=== PATIENT | female | born 1945 | race Caucasian/White ===

== ENCOUNTER → 2017-12-28 | Outpatient (CLI) | payer MEDICARE ==
[2017-12-28 13:03] LABS: Appearance,Urine Clear (Clear); Bilirubin,Urine Negative (Negative); Blood,Urine Negative (Negative); Color,Urine Light Yellow; Glucose,Urine (UA) Negative (Negative); Ketones,Urine Negative (Negative); Leukocyte Esterase,Urine Negative (Negative); Nitrite,Urine Negative (Negative); PH, Urine 7.5 (5.0-8.0); Protein,Urine Negative (Negative); Specific Gravity,Urine 1.008 (1.001-1.035); Urobilinogen,Urine <2.0 mg/dL (<2.0)
[2017-12-28 13:10] LABS: HCT 45.8 % (34.0-46.0); HGB 14.8 gm/dL (11.4-16.0); MCH 28.5 pg (25.0-35.0); MCHC 32.3 g/dL (31.0-37.0); MCV 88.1 fL (80.0-100.0); Mean Platelet Volume 8.1; Platelet Count 228 k/uL (150-450); RBC 5.21 m/uL (3.80-5.40); RDW 13.4 % (11.5-15.5); WBC 7.3 k/uL (3.8-10.6)
[2017-12-28 13:18] LABS: Partial Thromboplastin Time 22.2 sec (22.0-30.0); Prothrombin Time 10.1 sec (9.0-12.0)
[2017-12-28 13:37] LABS: ALT 26 U/L (9-52); AST 28 U/L (14-36); Albumin 4.1 g/dL (3.5-5.0); Alkaline Phosphatase 76 U/L (38-126); Anion Gap 9 mmol/L; Blood Urea Nitrogen 18 mg/dL (7-17); Calcium 10.1 mg/dL (8.4-10.2); Carbon Dioxide 30 mmol/L (22-30); Chloride 102 mmol/L (98-107); Glucose 95 mg/dL (74-99); Potassium 4.3 mmol/L (3.5-5.1); Sodium 141 mmol/L (137-145); Total Bilirubin 0.5 mg/dL (0.2-1.3); Total Protein 7.1 g/dL (6.3-8.2)
== END ==
LOC: LABPAT 11:40
PROVIDERS: ATTEND Orthopaedic Surgery Sports Medicine
DX: Z01.812 Encounter for preprocedural laboratory examination (principal); Z51.81 Encounter for therapeutic drug level monitoring; Z79.01 Long term (current) use of anticoagulants
CPT/HCPCS: 36415; 80053; 81003; 85027; 85610; 85730; 87070

== ENCOUNTER 2018-01-03 09:56 | Inpatient (IN) | payer MEDICARE ==
[2017-12-26 12:51] VITALS: BMI 39.4
[~2018-01-03 09:56] MED LIST: ACETAMINOPHEN TAB 500 MG TAB PO ONE; MELOXICAM 7.5 MG TAB PO ONE; ONDANSETRON 4 MG/2 ML VIAL IVP ONE; ROPIVACAINE 246.25 MG, EPINEPHrine 0.5 MG, KETOROLAC 30 MG, cloNIDine HCL/PF 80 MCG, WA... MISCELLANE ONE; TRANEXAMIC ACID 1,000 MG in SODIUM CHLORIDE 0.9% 50 ML IVPB ONE; ceFAZolin IN SWFI 2 GM/20 ML SYRINGE IVP ONE
[2018-01-03] MEDS ORDERED: LIDOCAINE 1% 20 ML VIAL (10MG/ML) FOR IV START INTRADERMA ONE (11:00)
[2018-01-03] MEDS ORDERED: LACTATED RINGERS 1,000 ML IV ONE ×2 (11:05→13:37)
[2018-01-03] MEDS ORDERED: NALOXONE 0.4 MG/ML 1 ML VIAL IV PRN ×2 (11:59→15:04)
[2018-01-03] MEDS ORDERED: TEMAZEPAM 15 MG CAP PO PRN (11:59)
[2018-01-03] MEDS ORDERED: traMADol 50 MG TAB PO PRN (11:59)
[2018-01-03] MEDS ORDERED: HYDROcodone/APAP 5-325MG 1 EACH TAB PO PRN ×2 (11:59)
[2018-01-03] MEDS ORDERED: HYDROcodone/APAP 10-325MG 1 EACH TAB PO PRN (11:59)
[2018-01-03] MEDS ORDERED: NA PHOS,M-B/NA PHOS,DI-BA 133 ML ENEMA RECTAL PRN (11:59)
[2018-01-03] MEDS ORDERED: HYDROcodone/APAP 7.5-325MG 1 EACH TAB PO PRN (11:59)
[2018-01-03] MEDS ORDERED: BISACODYL 10 MG SUPP RECTAL PRN (11:59)
[2018-01-03] MEDS ORDERED: MAGNESIUM HYDROXIDE 2,400 MG/10 ML CUP PO PRN (11:59)
[2018-01-03] MEDS ORDERED: DIAZEPAM 5 MG TAB PO PRN (11:59)
[2018-01-03] MEDS ORDERED: hydrOXYzine PAMOATE 25 MG CAP PO PRN (11:59)
[2018-01-03] MEDS ORDERED: HYDROmorphone 1 MG/ML 1 ML SYRINGE IVP PRN ×3 (11:59)
[2018-01-03] MEDS ORDERED: MIDAZOLAM 2 MG/2 ML VIAL ONE (12:19)
[2018-01-03] MEDS ORDERED: SODIUM CHLORIDE 0.9% 100 ML BAG ONE (12:19)
[2018-01-03] MEDS ORDERED: TRANEXAMIC ACID 1,000 MG/10 ML VIAL ONE (12:19)
[2018-01-03] MEDS ORDERED: MORPHINE SULFATE (PF) 0.3 MG/0.3 ML SYR ONE (12:19)
[2018-01-03] MEDS ORDERED: ePHEDrine SULFATE/0.9% NACL/PF 50 MG/5 ML SYRINGE IV ONE (12:19)
[2018-01-03] MEDS ORDERED: PROPOFOL 10 MG/ML 20 ML VIAL IV ONE (12:19)
[2018-01-03] MEDS ORDERED: fentaNYL (PF) 50 MCG/ML 2 ML AMP ONE (12:19)
[2018-01-03] MEDS ORDERED: CLINDAMYCIN 1,800 MG in SODIUM CHLORIDE 0.9% IRRIGATIO 3,000 ML IRRIGATION ONE (12:57)
--- NOTE | 2018-01-03 14:49 | XR ---
EXAMINATION TYPE: XR knee limited RT DATE OF EXAM: 01/03/2018 COMPARISON: None HISTORY: Postop knee TECHNIQUE: 2 view right knee FINDINGS: Femoral and tibial components of in place. No acute fractures are evident. Postsurgical addy nges are present. IMPRESSION: 1. No acute fracture post knee replacement.
[2018-01-03] MEDS ORDERED: MORPHINE SULFATE 4 MG/ML SYRINGE IVP PRN (15:04)
[2018-01-03] MEDS ORDERED: METOCLOPRAMIDE 5 MG/ML 2 ML VIAL IVP PRN (15:04)
[2018-01-03] MEDS ORDERED: diphenhydrAMINE 50 MG/ML 1 ML VIAL IVP PRN (15:04)
[2018-01-03] MEDS ORDERED: PROMETHAZINE INJ 6.25 MG in SODIUM CHLORIDE 0.9% 50 ML IVPB PRN (15:04)
--- NOTE | 2018-01-03 15:07 | OP ---
OPERATIVE REPORT DATE OF PROCEDURE: 01/03/2018 SURGEON: Woody Jasmine MD SPECIAL EDUCATION PARAEDUCATOR: ELIZABETH Coburn. PREOPERATIVE DIAGNOSIS: Right knee osteoarthrosis. POSTOPERATIVE DIAGNOSIS: Right knee osteoarthrosis. OPERATION: Right total knee arthroplasty. ANESTHESIA: Spinal with sedation. ESTIMATED BLOOD LOSS: 100 mL. TOURNIQUET TIME: 49 minutes at 250 mmHg. COMPLICATIONS: None apparent. DRAINS: None. DISPOSITION: Postanesthesia care unit. INDICATIONS: Camelia is a very pleasant 72-year-old female with longstanding history of right knee pain. History and physical examination are consistent with advanced right knee osteoarthrosis. She has been through significant nonoperative management up to this point. Further treatment options were discussed and she decided to go forward with a right total knee arthroplasty. The risks of the procedure were discussed with her in detail. These risks include, but are not limited to risk of infection, nerve damage, bleeding, pain and risk of deep vein thrombosis which could lead to fatal pulmonary embolism. There is also risk of loosening of the implant which could require revision operation. The patient understands these risks. All of her questions were answered to her satisfaction. Appropriate informed consent was obtained. DESCRIPTION OF THE PROCEDURE: Patient identified in preoperative holding area. Surgical site was marked by both the patient and myself. She was given 2 g of Ancef IV for prophylactic purposes. She was then transferred to the operative suite. She was placed supine on the operative table. Spinal anesthetic was then administered and dosed per the Anesthesia Department without apparent complication. Examination under anesthesia was then performed. The patient was 2-3 degrees shy of full extension. She had 100 degrees of flexion. The medial collateral ligament, lateral collateral ligament and posterior cruciate ligaments were stable. Tourniquet was then placed high on the right upper thigh, well-padded in preparation for surgery. The patient's right lower extremity is then prepped and draped in the usual sterile fashion. Standard surgical pause was undertaken to ensure that we were operating on the correct site and that appropriate preoperative antibiotics were given. All staff in the room were in agreement and we proceeded. The outlines of patellar were marked with surgical pen. A planned 12 cm vertical incision centered over the patella was marked with the surgical pen. The leg was then exsanguinated with an Esmarch dressing. The knee was then flexed and the tourniquet was inflated to 250 mmHg. The total tourniquet time for the procedure was 49 minutes. Incision was then made with a 10 blade scalpel. Dissection carried down sharply through the overlying fascia. Great care was taken to minimize the skin flaps. The knee was then exposed using a standard medial parapatellar approach. A small cuff of quadriceps tendon was then left for suturing. She was in a bit of valgus preoperatively. A very minimal medial release was then made. Superficial medial collateral ligament was dissected off the bone around the posterior aspect of the proximal tibia. The medial meniscus was then excised as well. The lateral meniscus was also released anteriorly. The leg was then externally rotated. The patella was everted and the knee was flexed. Retractors were then placed to protect the collateral ligaments. I then proceeded to remove the infrapatellar fat pad. This was excised sharply tangentially with fibers of the patellar tendon. I then proceeded to remove peripheral osteophytes. This was done with a rongeur. I then proceeded with the distal femoral resection. She did have near full extension. The planned 9 mm resection was then done. The femoral canal was then entered in the midline of the femur, approximately 10 mm anterior to the origin of the posterior cruciate ligament. The cassie was then advanced down the center of the femur and placed intramedullary. Based on preoperative radiographs, the angle between the anatomic and mechanical axis of the femur was approximately 4-5 degrees. The valgus angle of the distal femoral cutting guide was then set at 4 degrees for the right knee. This femoral cutting guide was then advanced over the intramedullary cassie. This was seated firmly against the femur. I then as mentioned planned to take 9 mm off the distal femur. The cutting block was then secured onto the femur with pins. The jig was then removed. The distal femoral cut was made through the slot of the block. The pins were then removed and the distal femoral cutting block was removed. The accuracy of the distal femoral cuts was checked with 2 flat bars. I then proceeded with femoral sizing. The posterior referencing sizing guide was held firmly against the resected distal surface of the femur. Posterior condyles were then resting on the posterior plane of the guide. The sizing stylus was then placed on the anterior femur. The size was measured as a size 9. I then assessed for femoral rotation. Plan was for 3 degrees external rotation. Three degrees of external rotation was placed onto the jig. These holes were then marked. I then confirmed the rotation by 3 separate methods. This was done using epicondylar axis as well as Whitesides line and posterior referencing. It was deemed that the external rotation was proper. I then went forward with placing the femoral cutting block. This placed over the previously placed pin hole. The Kalia wing was then placed on the anterior slots to ensure that we would not notch the anterior femur with the anterior femoral cut. I then proceed with the anterior femoral cut. This was flush with the anterior cortex of the femur. The posterior cuts were then made followed by the anterior chamfer cut, then the posterior chamfer cut. The cutting block was then removed. Throughout the resection, the collateral ligaments were protected with retractors. I then placed a trial size 9 femur. It fit very nice medial-lateral and fit flush with the distal end of the femur. I did make a decision to go with the narrow size of the femur though. The drill holes were then made. I then proceeded with the tibial cut. I planned for a cruciate-retaining knee. The guide was placed and set for varus valgus and for slope. The height was set for approximate 2 mm resection from the medial tibial plateau which was the lower side. I was happy with the alignment and the model resection. The cutting block was then pinned to the proximal tibia. The alignment cassie was removed and the proximal tibia was resected with a reciprocating saw. Again, this was done with retractors protecting the collateral ligaments as well as the posterior cruciate ligament. I then proceeded to evaluate the flexion and extension gaps. A 10 mm block was then placed. The flexion-extension gaps were equal. I then proceeded with resection of posterior osteophytes. She had very extensive posterior osteophytes. This was done using a curved osteotome. This resected the posterior osteophytes and posterior capsule stripping was also done off the posterior aspect of the femur at this time. The osteophytes were then removed. I then proceeded with the resection of the patella. The thickness of patella was measured using a caliper. The thickness was 22 mm. The thickness of the anticipated patellar dome was taken into account. Resection was then performed and confirmed to be equal in 4 quadrants using a caliper. Approximately 14 mm of bone remained after the resection. A 29 x 8 standard patellar trial was then placed. The holes were drilled and the trial was then placed. I then proceeded with sizing the tibial plate. A size E tibial plate fit very nicely. I then placed the trial femur, the tibial tray and patellar button. A 10 mm trial tibial insert was also placed. The components fit very nicely. She had full extension and flexion. The extension flexion gaps were equal and stable to both varus and valgus stress. The patella tracked appropriately. The tibial tray rotation was then marked with a Bovie. This was externally rotated properly. I then proceeded with tibial preparation. I first drilled the femoral hole and removed femoral component. The tibial tray was then set for proper external rotation as well as mediolateral placement onto the tibia. It was then pinned into place. I then proceeded with punching the keel. I then decided to proceed with cementing of all of our components. The knee was thoroughly irrigated with sterile saline solution via pulse lavage. The lateral geniculate artery was identified and cauterized. All blood was removed from the bone of the tibia femur and patella with pulse lavage. I then proceeded with cementing. Two packs of antibiotic bone cement prepared on the back table by the surgical services tech. I then proceed with cementing the tibia first. The cement was impacted into the keel as well as deeply seated into the bone. A second coat of cement was then placed. The tibia was then impacted into place. Excess cement was removed with Abigail's and jokers. I then proceed with cementing the femoral component. The femoral component was also cemented using standard technique. Excess cement was removed. A 10 mm trial insert was then placed in the knee. It was brought into full extension with a constant axial load placed until the cement had hardened. The patellar component was then cemented. This was held firmly with a compressive device until the cement had dried. When the cement had dried, the knee was taken out of extension. All excess cement was removed from around the prosthesis. I then trialed the knee with a 10 mm insert. I then proceeded to trial with a 12 mm insert, then a 13 mm insert. The knee came into full extension. The flexion-extension gaps felt better. I decided to go forward with 13 mm cross-linked cruciate-retaining tibial insert. Polyethylene was then placed onto the tray and locked. The knee was then reduced. The knee was again further irrigated with sterile saline solution with antibiotic added. The tourniquet was then deflated. The total tourniquet time for the procedure was 49 minutes at 250 mmHg. Final components were [place] Persona size 9, narrow cruciate- retaining femoral component. a size E tibial tray, a 13 mm medial congruent cruciate- retaining polyethylene insert, and a 29 x 8 patella. I then proceeded with closure. Again, the knee was thoroughly irrigated. The quadriceps tendon and the medial retinaculum were reapproximated with #2 Ethibond suture. The extensor mechanism was then closed with a running #2 Quill suture. Subcutaneous tissues were then closed with 2-0 Vicryl interrupted suture. The skin was closed with a running 3-0 Quill suture. Dermabond was applied to the incision. Sterile compressive dressings were then applied. All sponge and needle counts were deemed correct prior to closure. The patient tolerated the procedure without apparent complication. She was transferred to recovery room in stable condition. MMERINL / LA: [id number] /
--- NOTE | 2018-01-03 16:35 | P.CONS ---
History of Present Illness - Reason for Consult Perioperative hypotension - History of Present Illness Patient is admitted for right knee arthroplasty, and surgery did not pass gas yet pain is well-controlled denied any symptoms of chest pain nausea vomiting abdominal pain dysuria fever, chills doesn't have a Kendrick catheter no surgical debridement place Review of Systems REVIEW OF SYSTEMS: CONSTITUTIONAL: No fever, no malaise, no fatigue. HEENT: No recent visual problems or hearing problems. Denied any sore throat. CARDIOVASCULAR: No chest pain, orthopnea, PND, no palpitations, no syncope. PULMONARY: No shortness of breath, no cough, no hemoptysis. GASTROINTESTINAL: No diarrhea, no nausea, no vomiting, no abdominal pain. Normoactive bowel sounds. NEUROLOGICAL: No headaches, no weakness, no numbness. HEMATOLOGICAL: Denies any bleeding or petechiae. GENITOURINARY: Denies any burning micturition, frequency, or urgency. MUSCULOSKELETAL/RHEUMATOLOGICAL: Denies any joint pain, swelling, or any muscle pain. ENDOCRINE: Denies any polyuria or polydipsia. The rest of the 14-point review of systems is negative. Past Medical History Past Medical History: GERD/Reflux, Hypertension, Osteoarthritis (OA) Additional Past Medical History / Comment(s): varicose veins, osteoporosis, urinary incontinence History of Any Multi-Drug Resistant Organisms: None Reported Past Surgical History: Appendectomy, Back Surgery, Breast Surgery, Cholecystectomy, Hysterectomy Additional Past Surgical History / Comment(s): breast biopsies, colonoscopy, limited ROM of left shoulder Past Anesthesia/Blood Transfusion Reactions: Postoperative Nausea & Vomiting ( PONV) Past Psychological History: No Psychological Hx Reported Smoking Status: Never smoker Past Alcohol Use History: Occasional Past Drug Use History: None Reported - Past Family History Sister(s) Family Medical History: Cancer Medications and Allergies Home Medications Medication Instructions Recorded Confirmed Type Alendronate Sodium [Fosamax] 35 mg PO TU 12/26/17 01/03/18 History Aspirin 81 mg PO DAILY 12/26/17 01/03/18 History Calcium Carbonate [Calcium] 1,200 mg PO DAILY 12/26/17 01/03/18 History Cetirizine HCl [Zyrtec] 10 mg PO HS 12/26/17 01/03/18 History Ezetimibe [Zetia] 10 mg PO DAILY 12/26/17 01/03/18 History Hydrochlorothiazide [Hydrodiuril] 25 mg PO DAILY 12/26/17 01/03/18 History Ibuprofen [Motrin Ib] 200 mg PO Q6H PRN 12/26/17 01/03/18 History Krill/Om-3/Dha/Epa/Phospho/Ast 1 cap PO DAILY 12/26/17 01/03/18 History [[place]-3 Krill Oil 300 mg Sfgl] Lisinopril [Zestril] 10 mg PO DAILY 12/26/17 01/03/18 History Loratadine [Claritin] 10 mg PO DAILY 12/26/17 01/03/18 History Meloxicam [Mobic] 15 mg PO DAILY 12/26/17 01/03/18 History Methocarbamol [Robaxin] 500 mg PO DAILY 12/26/17 01/03/18 History Metoprolol Succinate [Toprol Xl] 100 mg PO DAILY 12/26/17 01/03/18 History Multivit with Calcium,Iron,Min 2 tab PO DAILY 12/26/17 01/03/18 History [Women's Multivitamin] Omeprazole [PriLOSEC] 20 mg PO AC-BID 12/26/17 01/03/18 History Potassium 99 mg PO DAILY 12/26/17 01/03/18 History Allergies Allergy/AdvReac Type Severity Reaction Status Date / Time meperidine [From Demerol] Allergy Unknown Verified 01/03/18 15:47 moxifloxacin [From Avelox] Allergy Unknown Verified 01/03/18 15:47 Penicillins Allergy Unknown Verified 01/03/18 15:47 Physical Exam Vitals: Vital Signs Temp Pulse Resp BP Pulse Ox 01/03/18 15:30 97.4 F L 74 12 107/61 94 L 01/03/18 15:00 83 16 91/65 92 L 01/03/18 14:45 81 16 90/61 92 L 01/03/18 14:30 82 16 96/60 94 L 01/03/18 14:15 96.3 F L 87 23 90/55 96 01/03/18 10:48 97.9 F 76 18 122/72 97 Intake and Output 01/03/18 01/03/18 01/03/18 06:59 14:59 22:59 Intake Total 1361 Output Total 100 Balance 1261 Intake: IV 1361 Output: Estimated Blood Loss 100 PHYSICAL EXAMINATION: GENERAL: The patient is alert and oriented x3, not in any acute distress. Well developed, well nourished. HEENT: Pupils are round and equally reacting to light. EOMI. No scleral icterus. No conjunctival pallor. Normocephalic, atraumatic. No pharyngeal erythema. No thyromegaly. CARDIOVASCULAR: S1 and S2 present. No murmurs, rubs, or gallops. PULMONARY: Chest is clear to auscultation, no wheezing or crackles. ABDOMEN: Soft, nontender, nondistended, normoactive bowel sounds. No palpable organomegaly. MUSCULOSKELETAL: Deferred to orthopedic surgery EXTREMITIES: No cyanosis, clubbing, or pedal edema. NEUROLOGICAL: Gross neurological examination did not reveal any focal deficits. SKIN: No rashes. Assessment and Plan Plan: -Hypotension the perioperative period: Expected outcome after surgery hold off on hydrochlorothiazide and lisinopril, beta bong will be continued. Her home blood pressure medications and be restarted depending on her blood pressure here. -Right knee arthroplasty postoperative day 0: Pain management and DVT prophylaxis per primary service -Hyperlipidemia -Obesity -Hypertension -Gastroesophageal reflux disease For above-mentioned chronic medical problems patient's appropriate home medications will be restarted
[2018-01-03] MEDS: NALBUPHINE 10 MG/ML VIAL (10ML MDV) IV PRN (17:38)
[2018-01-03] MEDS: LACTATED RINGERS 1,000 ML IV SCH (17:56)
[2018-01-03] MEDS: PANTOPRAZOLE 40 MG TABLET PO SCH (17:56)
[2018-01-03] MEDS: ONDANSETRON 4 MG/2 ML VIAL IVP PRN (18:34)
[2018-01-03] MEDS: ASPIRIN 325 MG TAB PO SCH (20:30)
[2018-01-03] MEDS: ceFAZolin IN SWFI 2 GM/20 ML SYRINGE IVP SCH (20:30)
[2018-01-03] MEDS ORDERED: SENNOSIDES-DOCUSATE SODIUM 1 EACH TAB PO SCH (21:00)
[2018-01-04] MEDS: LACTATED RINGERS 1,000 ML IV SCH ×2 (03:10→12:31)
[2018-01-04] MEDS: NALBUPHINE 10 MG/ML VIAL (10ML MDV) IV PRN (03:23)
[2018-01-04] MEDS: ceFAZolin IN SWFI 2 GM/20 ML SYRINGE IVP SCH (03:24)
[2018-01-04] MEDS: ONDANSETRON 4 MG/2 ML VIAL IVP PRN (04:23)
--- NOTE | 2018-01-04 06:58 | P.PN ---
Progress Note - Text Date:01/04 Time:640am Patient is status post total knee replacement by Dr. Jasmine. Patient seen this morning with VAS score of 2. c/o of pruritus, c/o nausea/vomiting. She is comfortable as far as pain is concerned but is still having some nausea and itching. I reassured her that she should feel better soon as the effects of Duramorph last for 24 hours only.
[2018-01-04] MEDS: PANTOPRAZOLE 40 MG TABLET PO SCH (07:43)
[2018-01-04 08:07] LABS: Anion Gap 10 mmol/L; Blood Urea Nitrogen 20 mg/dL (7-17); Calcium 8.5 mg/dL (8.4-10.2); Carbon Dioxide 26 mmol/L (22-30); Chloride 103 mmol/L (98-107); Glucose 106 mg/dL (74-99); Potassium 4.2 mmol/L (3.5-5.1); Sodium 139 mmol/L (137-145)
[2018-01-04 08:42] LABS: Basophils % (A) 0 %; Eosinophils # (A) 0.1 k/uL (0-0.7); Eosinophils % (A) 1 %; HCT 39.5 % (34.0-46.0); HGB 12.8 gm/dL (11.4-16.0); Lymphocytes # (A) 1.4 k/uL (1.0-4.8); Lymphocytes % (A) 16 %; MCH 28.9 pg (25.0-35.0); MCHC 32.3 g/dL (31.0-37.0); MCV 89.5 fL (80.0-100.0); Mean Platelet Volume 8.5; Monocytes # (A) 0.4 k/uL (0-1.0); Monocytes % (A) 5 %; Neutrophils # (A) 6.5 k/uL (1.3-7.7); Neutrophils % (A) 77 %; Platelet Count 168 k/uL (150-450); RBC 4.42 m/uL (3.80-5.40); RDW 13.7 % (11.5-15.5); WBC 8.4 k/uL (3.8-10.6)
[2018-01-04] MEDS ORDERED: EZETIMIBE 10 MG TAB PO SCH (09:00)
[2018-01-04] MEDS ORDERED: ASPIRIN 81 MG PO SCH (09:00)
[2018-01-04] MEDS ORDERED: METOPROLOL SUCCINATE (ER) 100 MG TAB.ER.24H PO SCH (09:00)
[2018-01-04] MEDS ORDERED: METHOCARBAMOL 500 MG TAB PO SCH (09:00)
--- NOTE | 2018-01-04 09:34 | P.DS ---
Providers Date of admission: 01/03/18 09:56 Expected date of discharge: 01/04/18 Attending physician: Woody Jasmine Consults: 01/03/18 11:59 Consult Physician Routine Consulting Provider: Jennifer Peres Consult Reason/Comments: post op medical management Do you want consulting provider notified?: Yes Primary care physician: Stated None - Discharge Diagnosis(es) (1) Osteoarthritis of right knee Patient was admitted to the OR on 01/03/2018 to undergo a right total knee arthroplasty. She had failed conservative measures as an outpatient and desired to proceed with elective surgery after given informed consent. She underwent the above procedure which she tolerated well without complication. Postoperative hospital course has remained without complication. On day of discharge she is afebrile, vital signs stable, labs within acceptable ranges, tolerating by mouth meds and diet, voiding without difficulty, positive flatus, denies abdominal pain or calf pain, pain is controlled on oral pain medication and has no new complaints. Wound is benign, neurovascular status is intact, calf is soft and nontender, abdomen soft and nontender. Review of systems is negative for numbness, tingling, fever, chills, chest pain, shortness breath, nausea, vomiting, dizziness, headaches, slurred speech or other. Current Visit: Yes Status: Acute Priority: Medium (2) Status post total right knee replacement Current Visit: Yes Status: Acute Priority: Medium Procedures: Right TKA Patient Condition at Discharge: Good Plan - Discharge Summary Discharge Rx Participant: Yes New Discharge Prescriptions: New Aspirin 325 mg PO BID #60 tab Docusate [Colace] 100 mg PO BID #60 capsule HYDROcodone/APAP 7.5-325MG [[place] 7.5-325] 1 - 2 tab PO Q6HR PRN #56 tab PRN Reason: Pain No Action Omeprazole [PriLOSEC] 20 mg PO AC-BID Lisinopril [Zestril] 10 mg PO DAILY Hydrochlorothiazide [Hydrodiuril] 25 mg PO DAILY Aspirin 81 mg PO DAILY Methocarbamol [Robaxin] 500 mg PO DAILY Meloxicam [Mobic] 15 mg PO DAILY Loratadine [Claritin] 10 mg PO DAILY Ezetimibe [Zetia] 10 mg PO DAILY Cetirizine HCl [Zyrtec] 10 mg PO HS Potassium 99 mg PO DAILY Multivit with Calcium,Iron,Min [Women's Multivitamin] 2 tab PO DAILY Metoprolol Succinate [Toprol Xl] 100 mg PO DAILY Krill/Om-3/Dha/Epa/Phospho/Ast [[place]-3 Krill Oil 300 mg Sfgl] 1 cap PO DAILY Ibuprofen [Motrin Ib] 200 mg PO Q6H PRN PRN Reason: Pain Calcium Carbonate [Calcium] 1,200 mg PO DAILY Alendronate Sodium [Fosamax] 35 mg PO TU Discharge Medication List Alendronate Sodium [Fosamax] 35 mg PO TU 12/26/17 [History] Aspirin 81 mg PO DAILY 12/26/17 [History] Calcium Carbonate [Calcium] 1,200 mg PO DAILY 12/26/17 [History] Cetirizine HCl [Zyrtec] 10 mg PO HS 12/26/17 [History] Ezetimibe [Zetia] 10 mg PO DAILY 12/26/17 [History] Hydrochlorothiazide [Hydrodiuril] 25 mg PO DAILY 12/26/17 [History] Ibuprofen [Motrin Ib] 200 mg PO Q6H PRN 12/26/17 [History] Krill/Om-3/Dha/Epa/Phospho/Ast [[place]-3 Krill Oil 300 mg Sfgl] 1 cap PO DAILY [History] Lisinopril [Zestril] 10 mg PO DAILY 12/26/17 [History] Loratadine [Claritin] 10 mg PO DAILY 12/26/17 [History] Meloxicam [Mobic] 15 mg PO DAILY 12/26/17 [History] Methocarbamol [Robaxin] 500 mg PO DAILY 12/26/17 [History] Metoprolol Succinate [Toprol Xl] 100 mg PO DAILY 12/26/17 [History] Multivit with Calcium,Iron,Min [Women's Multivitamin] 2 tab PO DAILY 12/26/17 [ History] Omeprazole [PriLOSEC] 20 mg PO AC-BID 12/26/17 [History] Potassium 99 mg PO DAILY 12/26/17 [History] Aspirin 325 mg PO BID #60 tab 01/04/18 [Rx] Docusate [Colace] 100 mg PO BID #60 capsule 01/04/18 [Rx] HYDROcodone/APAP 7.5-325MG [[place] 7.5-325] 1 - 2 tab PO Q6HR PRN #56 tab 10/05/ 18 [Rx] Follow up Appointment(s)/Referral(s): [facility], [NON-STAFF] - Woody Jasmine MD [STAFF PHYSICIAN] - 1 Week Discharge Disposition: HOME WITH HOME HEALTH SERVICES
[2018-01-04] MEDS: ASPIRIN 325 MG TAB PO SCH (09:57)
[2018-01-04] MEDS ORDERED: MULTIVITAMINS, THERA 1 EACH TAB PO SCH (12:00)
[2018-01-04 15:15] VITALS: BP 119/80; PULSE 97; RESP 17; TEMP 98.6
--- NOTE | 2018-01-04 17:38 | PN ---
PROGRESS NOTE DATE OF SERVICE: 01/04/2018 This 72-year-old woman who was admitted with hypertension had right knee arthroplasty. The patient also had some hypotension in the perioperative period. The patient was feeling dizzy, also. The blood pressure is improving at this time. No chest pain. No palpitations. No fever. PHYSICAL EXAMINATION: Alert and oriented x3. The pulse is 97, blood pressure 119/80, respiration 17, temperature 98.6, pulse ox normal. HEENT: Conjunctivae normal. Oral mucosa moist. NECK: No jugular venous distention. No carotid bruit. No lymph node enlargement. CARDIOVASCULAR SYSTEM: S1, S2 muffled. RESPIRATORY SYSTEM: Breath sounds diminished at the bases. No rhonchi. No crackles. ABDOMEN: Soft. LEGS: Status post knee arthroplasty. NERVOUS SYSTEM: No focal deficit. LABS: CBC and BMP normal. ASSESSMENT: 1. Status post right knee arthroplasty. 2. Postoperative hypotension, improved. 3. Hyperlipidemia. 4. Obesity. 5. Hypertension. 6. History of gastroesophageal reflux disease. RECOMMENDATIONS AND DISCUSSION: I recommend to continue current medication, continue symptomatic treatment. The patient is keen on going home at this time. The patient is currently stable. I would recommend close followup with the primary care physician in the outpatient setting if discharged. I also recommend that the patient is to hold the blood pressure medication for systolic less than 110, and keep a blood pressure diary, also. DISCHARGE ADVICE AND MEDICATIONS: 1. Fosamax 35 mg p.o. . 2. Aspirin 81 mg daily. 3. Calcium 1200 mg p.o. daily. 4. Zyrtec 10 mg at bedtime. 5. Zetia 10 mg p.o. daily. 6. HydroDIURIL 25 mg p.o. daily. 7. Krill oil 1 p.o. daily. 8. Zestril 10 mg p.o. daily. 9. Claritin 10 mg p.o. daily. 10.Robaxin 500 mg p.o. daily. 11.Toprol-XL 100 mg p.o. daily. 12.Multivitamins 1 p.o. daily. 13.Prilosec 20 mg b.i.d. 14.KCl 99 p.o. daily. 15.Aspirin 325 mg b.i.d. per Orthopedic Surgery. 16.Colace 100 mg b.i.d. 17.Happy 7.5 q.6 p.r.n. 18.Ultram 50 mg q.4 p.r.n. 19.Hold the blood pressure medication if systolic is less than 110 mm per Orthopedic Surgery. Further recommendations to follow. REVIEW OF SYSTEMS: CARDIOVASCULAR SYSTEM: No angina, palpitations. RESPIRATORY SYSTEM: As mentioned earlier. GI: As mentioned earlier. : No dysuria or retention. NERVOUS SYSTEM: As mentioned earlier. Current medications are reviewed. MMODL / IJN: [id number] / MTDD
[2018-01-08] MEDS ORDERED: ALENDRONATE SODIUM 35 MG PO SCH (12:00)
== END 2018-01-04 16:26 | disposition home health service (06) | DRG 470 ==
LOC: 2ORMAIN 09:56 → 3SUR 14:15
PROVIDERS: ADMIT Orthopaedic Surgery Sports Medicine; ATTEND Orthopaedic Surgery Sports Medicine
PROC: 0SRC0J9 Replacement of Right Knee Joint with Synthetic Substitute, Cemented, Open Approach (ICD-10-PCS; principal; 2018-01-03 12:00)
DX: M17.11 Unilateral primary osteoarthritis, right knee (principal); I95.9 Hypotension, unspecified; E66.9 Obesity, unspecified; E78.5 Hyperlipidemia, unspecified; I10 Essential (primary) hypertension; K21.9 Gastro-esophageal reflux disease without esophagitis; L29.9 Pruritus, unspecified; M81.0 Age-related osteoporosis without current pathological fracture; I83.90 Asymptomatic varicose veins of unspecified lower extremity; R32 Unspecified urinary incontinence; R11.2 Nausea with vomiting, unspecified; E78.1 Pure hyperglyceridemia; N60.12 Diffuse cystic mastopathy of left breast; N60.11 Diffuse cystic mastopathy of right breast; K57.90 Diverticulosis of intestine, part unspecified, without perforation or abscess without bleeding; K63.5 Polyp of colon; M50.30 Other cervical disc degeneration, unspecified cervical region; J30.2 Other seasonal allergic rhinitis; M21.062 Valgus deformity, not elsewhere classified, left knee; M21.061 Valgus deformity, not elsewhere classified, right knee; M48.061 Spinal stenosis, lumbar region without neurogenic claudication; M43.17 Spondylolisthesis, lumbosacral region; Z79.1 Long term (current) use of non-steroidal anti-inflammatories (NSAID); Z79.82 Long term (current) use of aspirin; Z79.83 Long term (current) use of bisphosphonates; Z79.899 Other long term (current) drug therapy; Z90.710 Acquired absence of both cervix and uterus; Z88.1 Allergy status to other antibiotic agents; Z88.5 Allergy status to narcotic agent; Z88.0 Allergy status to penicillin; Z90.49 Acquired absence of other specified parts of digestive tract; Z68.39 Body mass index [BMI] 39.0-39.9, adult
CPT/HCPCS: 80048; 85025; 88300

== ENCOUNTER → 2018-06-14 | Outpatient (CLI) | payer MEDICARE ==
[2018-06-14 12:19] LABS: HCT 47.2 % (34.0-46.0); HGB 15.7 gm/dL (11.4-16.0); MCH 28.9 pg (25.0-35.0); MCHC 33.3 g/dL (31.0-37.0); MCV 86.7 fL (80.0-100.0); Mean Platelet Volume 7.7; Platelet Count 228 k/uL (150-450); RBC 5.44 m/uL (3.80-5.40); RDW 13.8 % (11.5-15.5); WBC 8.5 k/uL (3.8-10.6)
[2018-06-14 12:27] LABS: INR 0.9 (<1.2); Partial Thromboplastin Time 22.5 sec (22.0-30.0); Prothrombin Time 10.1 sec (9.0-12.0)
[2018-06-14 12:37] LABS: ALT 31 U/L (9-52); AST 26 U/L (14-36); Albumin 4.2 g/dL (3.5-5.0); Alkaline Phosphatase 87 U/L (38-126); Anion Gap 11 mmol/L; Blood Urea Nitrogen 24 mg/dL (7-17); Calcium 10.2 mg/dL (8.4-10.2); Carbon Dioxide 27 mmol/L (22-30); Chloride 101 mmol/L (98-107); Glucose 97 mg/dL (74-99); Sodium 139 mmol/L (137-145); Total Bilirubin 0.6 mg/dL (0.2-1.3); Total Protein 7.2 g/dL (6.3-8.2)
[2018-06-14 13:52] LABS: Appearance,Urine Clear (Clear); Bilirubin,Urine Negative (Negative); Blood,Urine Negative (Negative); Color,Urine Yellow; Glucose,Urine (UA) Negative (Negative); Ketones,Urine Negative (Negative); Leukocyte Esterase,Urine Negative (Negative); Nitrite,Urine Negative (Negative); Protein,Urine Negative (Negative); Specific Gravity,Urine 1.009 (1.001-1.035); Urobilinogen,Urine <2.0 mg/dL (<2.0)
== END | disposition home or self-care (01) ==
LOC: LABPAT 11:34
PROVIDERS: ATTEND Orthopaedic Surgery Sports Medicine
DX: Z01.812 Encounter for preprocedural laboratory examination (principal); Z79.01 Long term (current) use of anticoagulants
CPT/HCPCS: 80053; 81003; 85027; 85610; 85730; 87070

== ENCOUNTER → 2018-07-12 | Outpatient (CLI) | payer MEDICARE ==
[2018-07-12 17:30] LABS: Partial Thromboplastin Time 22.5 sec (22.0-30.0); Prothrombin Time 10.4 sec (9.0-12.0)
[2018-07-12 17:46] LABS: HCT 48.9 % (34.0-46.0); HGB 15.7 gm/dL (11.4-16.0); MCH 28.2 pg (25.0-35.0); MCHC 32.1 g/dL (31.0-37.0); MCV 87.7 fL (80.0-100.0); Mean Platelet Volume 8.2; Platelet Count 243 k/uL (150-450); RBC 5.57 m/uL (3.80-5.40); RDW 13.5 % (11.5-15.5)
[2018-07-12 17:59] LABS: Appearance,Urine Clear (Clear); Bilirubin,Urine Negative (Negative); Blood,Urine Small (Negative); Color,Urine Yellow; Glucose,Urine (UA) Negative (Negative); Hyaline Casts,Urine 28 /lpf (0-2); Ketones,Urine Negative (Negative); Leukocyte Esterase,Urine Small (Negative); Mucus,Urine Moderate /hpf; Nitrite,Urine Negative (Negative); Protein,Urine Trace (Negative); RBC,Urine 8 /hpf (0-5); Specific Gravity,Urine 1.025 (1.001-1.035); Squamous Epithelial Cell,Urine 1 /hpf (0-4); Urobilinogen,Urine <2.0 mg/dL (<2.0); WBC,Urine 7 /hpf (0-5)
[2018-07-12 22:17] LABS: Anion Gap 9.2 mmol/L (4.00-12.00); Carbon Dioxide 27.8 mmol/L (21.6-31.8); Potassium 4.3 mmol/L (3.5-5.5)
== END ==
LOC: LABWHC1 16:26
PROVIDERS: ATTEND Orthopaedic Surgery Sports Medicine
DX: Z01.812 Encounter for preprocedural laboratory examination (principal)
CPT/HCPCS: 36415; 80051; 81001; 82565; 84520; 85027; 85610; 85730

== ENCOUNTER 2018-09-18 12:52 | Day surgery (SDC) | payer MEDICARE ==
[2018-09-11 09:09] VITALS: BMI 36.3
[~2018-09-18 12:52] MED LIST changes: +BISACODYL 10 MG SUPP RECTAL PRN; +DIAZEPAM 5 MG TAB PO PRN; +HYDROcodone/APAP 10-325MG 1 EACH TAB PO PRN; +HYDROcodone/APAP 5-325MG 1 EACH TAB PO PRN; +HYDROmorphone 0.5 MG/0.5 ML SYRINGE IVP PRN; +LIDOCAINE 1% 20 ML VIAL (10MG/ML) FOR IV START INTRADERMA PRN; +MAGNESIUM HYDROXIDE 2,400 MG/10 ML CUP PO PRN; +NA PHOS,M-B/NA PHOS,DI-BA 133 ML ENEMA RECTAL PRN; +NALOXONE 0.4 MG/ML 1 ML VIAL IV PRN; +TEMAZEPAM 15 MG CAP PO PRN; +TRANEXAMIC ACID 1,000 MG in SODIUM CHLORIDE 0.9% 100 ML IVPB ONE; -TRANEXAMIC ACID 1,000 MG in SODIUM CHLORIDE 0.9% 50 ML IVPB ONE; +traMADol 50 MG TAB PO PRN
[2018-09-18] MEDS: LACTATED RINGERS 1,000 ML IV SCH (13:31)
[2018-09-18] MEDS ORDERED: TRANEXAMIC ACID 1,000 MG/10 ML VIAL ONE (15:31)
[2018-09-18] MEDS ORDERED: LIDOCAINE 1% INJ 10MG/ML (20 ML MDV) ONE (15:31)
[2018-09-18] MEDS ORDERED: MORPHINE SULFATE (PF) 0.3 MG/0.3 ML SYR ONE (15:31)
[2018-09-18] MEDS ORDERED: fentaNYL (PF) 50 MCG/ML 2 ML AMP ONE (15:31)
[2018-09-18] MEDS ORDERED: SODIUM CHLORIDE 0.9% 100 ML BAG ONE (15:31)
[2018-09-18] MEDS ORDERED: PROPOFOL 10 MG/ML 20 ML VIAL IV ONE (15:31)
[2018-09-18] MEDS ORDERED: MIDAZOLAM 2 MG/2 ML VIAL ONE (15:31)
[2018-09-18] MEDS ORDERED: ceFAZolin 3,000 MG in SODIUM CHLORIDE 0.9% IRRIGATIO 3,000 ML IRRIGATION ONE (15:50)
--- NOTE | 2018-09-18 18:03 | XR ---
EXAMINATION TYPE: XR knee limited LT DATE OF EXAM: 09/18/2018 COMPARISON: NONE HISTORY: Postop TECHNIQUE: 2 views FINDINGS: There is left knee prosthesis. Components are in anatomic position. IMPRESSION: No complicating process seen.
[2018-09-18] MEDS ORDERED: diphenhydrAMINE 50 MG/ML 1 ML VIAL IVP PRN (19:03)
[2018-09-18] MEDS ORDERED: NALOXONE 0.4 MG/ML 1 ML VIAL IV PRN ×2 (19:03→19:54)
[2018-09-18] MEDS ORDERED: KETOROLAC 30 MG/ML 1 ML VIAL IVP PRN (19:54)
[2018-09-18] MEDS ORDERED: MORPHINE SULFATE 2 MG/ML SYRINGE IVP PRN (19:54)
[2018-09-18] MEDS ORDERED: SENNOSIDES-DOCUSATE SODIUM 1 EACH TAB PO SCH (21:00)
[2018-09-18] MEDS: NALBUPHINE 10 MG/ML (1 ML AMP) IV PRN (21:04)
[2018-09-18] MEDS: ASPIRIN 325 MG TAB PO SCH (21:05)
--- NOTE | 2018-09-18 21:34 | OP ---
OPERATIVE REPORT DATE OF PROCEDURE: 09/18/2018. SURGEON: Woody Jasmine M.D. CHIEF DIGITAL OFFICER: Abraham JOHNSON. PREOPERATIVE DIAGNOSIS: Left knee osteoarthrosis. POSTOP DIAGNOSIS: Left knee osteoarthrosis. OPERATION PERFORMED: Left total knee arthroplasty. ANESTHESIA: Spinal with sedation. ESTIMATED BLOOD LOSS: 100 mL. TOURNIQUET TIME: 51 minutes at 250 mmHg. COMPLICATIONS: None apparent. DRAINS: None. DISPOSITION: Postanesthesia care unit. INDICATIONS: Camelia is a very pleasant 73-year-old female with longstanding left knee pain. History and physical examination are consist with advanced left knee osteoarthrosis. She has been through significant nonoperative management up to this point. Further treatment options were discussed and she decided to go for the left total knee arthroplasty. The risks of procedure were discussed with her in detail. These risks include, but are not limited to risk of infection, nerve damage, bleeding, pain and risk of deep vein thrombosis which could lead to fatal pulmonary embolism. There is also risk of loosening of the implant which could require revision operation. The patient understands these risks. All of her questions were answered to her satisfaction. An appropriate informed consent was obtained. PROCEDURE: The patient was identified in preop holding area. Surgical site was marked by both the patient and myself. She was given 2 g of Ancef IV for prophylactic purposes. She was then transferred to the operative suite. She was placed supine on the operative table. Spinal anesthetic was then administered and dosed per the Anesthesia Department without apparent complication. Examination under anesthesia was then performed. The patient had full extension. She had 95 degrees of flexion. The medial collateral ligament, lateral collateral ligament posterior cruciate ligaments were stable. Tourniquet was then placed high on the left upper thigh well-padded in preparation for surgery. The patient's left lower extremity was then prepped and draped in usual sterile fashion. Standard surgical pause was undertaken to ensure that we were operating on the correct site and that appropriate preoperative antibiotics were given. All staff in the room were in agreement and we proceeded. The outlines of the patella marked with a surgical pen. A planned 12 cm vertical incision centered over the patella was marked with a surgical pen. The leg was then exsanguinated with a with an Esmarch dressing. The knee was then flexed and tourniquet was inflated to 250 mmHg. The total tourniquet time for the procedure was 51 minutes. Incision was then made with a 10 blade scalpel. Dissection carried down sharply to the overlying fascia. Great care was taken to minimize the skin flaps. The knee was then exposed using a standard medial parapatellar approach. A small cuff of quadriceps tendon was then left for suturing. She was then quite a bit of valgus preoperatively. A very minimal medial release was made. This was done just enough of a release to place retractors on the medial side of the knee. The medial meniscus was then excised as well. The lateral meniscus was also released anteriorly. The leg was then externally rotated. The patella was everted. The knee was flexed. The retractors then placed to protect the collateral ligaments. I then proceeded to remove the infrapatellar fat pad. This was excised sharply tangentially with the fibers of the patellar tendon. I then proceeded to remove the peripheral osteophytes. This was done with a rongeur. I then proceeded with the distal femoral resection. She did have near full extension. A planned 9 mm resection was then done. The femoral canal was then entered in the midline of the femur approximately 10 mm anterior to the origin of the posterior cruciate ligament. The cassie was then advanced down the center of the femur and placed intramedullary. Based on the preoperative radiographs, the angle between the anatomic and mechanical axis of the femur was approximately 4-5 degrees. The valgus angle of the distal femoral cutting guide was then set at 4 degrees for the left knee. The distal femoral cutting guide was then advanced over the intramedullary cassei. This was seated firmly against the femur. I then as mentioned planned to take 9 mm off the distal femur. The cutting block was then secured onto the femur with pins. The jig was then removed. The distal femoral cut was made through the slot of the block. The pins were then removed. The distal femoral cutting block was removed. The accuracy of the distal femoral cuts was checked with 2 flat bars. I then proceeded with femoral sizing. The posterior referencing sizing guide was held firmly against the resected distal surface of the femur. Posterior condyles were resting on the posterior plane of the guide. The sizing stylus was then placed onto the anterior femur. The size was measured as a size 9. I then assessed for femoral rotation. The plan was for 3 degrees of external rotation. Three degrees of external rotation was placed onto the jig. These holes were then marked. I then confirmed the rotation by 3 separate methods. This was done using epicondylar axis as well as [place] line and posterior referencing. It was deemed that the external rotation was proper. I then went forward placing the femoral cutting block. This was placed over the previously placed pin holes. The Kalia wing was then placed onto the anterior slots to ensure that we would not notch the anterior femur with the anterior femoral cut. I then proceed with the anterior femoral cut. This was flush with the anterior cortex of the femur. Posterior cuts were then made, followed by the anterior chamfer cut, then the posterior chamfer cut. The cutting block was then removed. Throughout the resection, the collateral ligaments were protected with retractors. I then placed a trial size 9 femur. It fit flush with this onto the femur. It was slightly wide, but the narrow fit was fit very nicely medial-lateral. The drill holes were then made. I then proceeded with the tibial cut. I planned for cruciate retaining knee. The guide was placed and set for varus valgus and for slope. The height was set for approximate 2 mm resection from the lateral tibial plateau which was the lower side. I was happy with the alignment and the amount of resection. The cutting block was then pinned to the proximal tibia. The alignment cassie was removed. The proximal tibia was resected with a reciprocating saw. Again this was done with retractors protecting the collateral ligaments as well as the posterior cruciate ligament. I then proceeded to evaluate the flexion and extension gaps. A 10 mm block was then placed. The flexion-extension gaps were equal. I then proceed with a resection of posterior osteophytes. She had very extensive posterior osteophytes. This was done using a curved osteotome. This resected the posterior osteophytes and posterior capsule stripping was also done at this time off the posterior aspect of the femur. The osteophytes were then removed. I then proceeded with resection of the patella. The thickness of patella was measured using a caliper. The thickness was 24 mm. The thickness of the anticipated patellar dome was taken into account. Resection was then performed and confirmed to be equal in 4 quadrants using a caliper. Approximately 14 mm of bone remained after the resection. A 29 x 8 standard patellar trial was then placed. The holes were drilled. The trial was then placed. I then proceed with sizing tibial plate. A size E tibial plate fit very nicely. I then placed the trial femur in the tibial tray and patellar button. A 10 mm trial and tibial insert was also placed. The components fit very nicely. She had full extension and flexion. The extension flexion gaps were equal and stable to both varus and valgus stress. The patella tracked appropriately. Tibial tray rotation was marked with a Bovie. This was externally rotated properly. I then proceed with tibial preparation. I first drilled the femoral holes, removed femoral component. The tibial tray was then set for proper external rotation as well as mediolateral placement onto the tibia. It was then pinned into place. I then proceed with punching the keel. I then decided to proceed with cementing of all of our components. The knee was thoroughly irrigated with sterile saline solution via pulse lavage. The lateral geniculate artery was identified and cauterized. All blood was removed from the bone of the tibia, femur and patella with pulse lavage. I then proceeded with cementing. Two packs of antibiotic bone cement prepared on the back table by the surgical elastic knitter. I then proceed with cementing the tibia first. The cement was impacted into the keel as well as deeply seated into the bone. A second coat of cement was then placed. The tibia was then impacted into place. Excess cement was removed with Abigail's and Joker's. I then proceed with cementing the femoral component. The femoral component was also cemented using standard technique. Excess cement was removed. A 10 mm trial insert was then placed into the knee. It was brought into full extension with a constant axial load placed until the cement had hardened. The patellar component was then cemented. This was held firmly with a compressive device until the cement had dried. When the cement had dried, the knee was taken out of extension. All excess cement was removed from around the prosthesis. I then trialed the knee with a 10 mm insert. The flexion-extension gaps were appropriate. The knee was stable. It came into full extension. I decided to go forward with a 10 mm cross-linked cruciate-retaining tibial insert. Polyethylene was then placed onto the tibial tray and locked into place. The knee was then reduced. The knee was again further irrigated with sterile saline solution with antibiotic added. The tourniquet was then deflated. Total tourniquet time for the procedure was 51 minutes at 250 mmHg. Final components were [place] persona size 9 narrow cruciate-retaining femoral component, a size E tibial tray, 10 mm medial congruent cruciate-retaining polyethylene insert, and a 29 x 8 mm patella. I then proceeded with closure. Again, the knee was thoroughly irrigated. The quadriceps tendon and the medial retinaculum were reapproximated with #2 Ethibond suture. The extensor mechanism was then closed with a running #2 Quill suture. Subcutaneous tissues were then closed with 2-0 Vicryl interrupted suture. The skin was closed with a running 3-0 Quill suture. Dermabond was applied to the incision. Sterile compressive dressing was then applied. All sponge and needle counts were deemed correct prior to closure. The patient tolerated the procedure without apparent complication. She was transferred to recovery room in stable condition. MMODL / IJN: [id number] /
[2018-09-19] MEDS: ONDANSETRON 4 MG/2 ML VIAL IVP PRN ×2 (00:56→10:22)
[2018-09-19] MEDS: NALBUPHINE 10 MG/ML (1 ML AMP) IV PRN ×2 (00:57→08:40)
[2018-09-19] MEDS: ceFAZolin IN SWFI 2 GM/20 ML SYRINGE IVP SCH ×2 (00:57→08:40)
[2018-09-19 07:40] LABS: Basophils % (A) 0 %; Eosinophils # (A) 0.1 k/uL (0-0.7); Eosinophils % (A) 1 %; HCT 41.8 % (34.0-46.0); HGB 13.5 gm/dL (11.4-16.0); Lymphocytes % (A) 22 %; MCH 28.1 pg (25.0-35.0); MCHC 32.3 g/dL (31.0-37.0); MCV 86.9 fL (80.0-100.0); Monocytes # (A) 0.4 k/uL (0-1.0); Monocytes % (A) 5 %; Neutrophils # (A) 6.3 k/uL (1.3-7.7); Neutrophils % (A) 71 %; Platelet Count 220 k/uL (150-450); RBC 4.81 m/uL (3.80-5.40); RDW 14.4 % (11.5-15.5); WBC 8.9 k/uL (3.8-10.6)
[2018-09-19 08:02] VITALS: BP 112/74; PULSE 78; RESP 16; TEMP 97.9
[2018-09-19] MEDS: ASPIRIN 325 MG TAB PO SCH (08:40)
[2018-09-19] MEDS: LACTATED RINGERS 1,000 ML IV SCH (09:03)
--- NOTE | 2018-09-19 09:45 | P.DS ---
Providers Expected date of discharge: 09/19/18 Attending physician: Woody Jasmine Consults: 09/18/18 12:40 Consult Physician Routine Consulting Provider: Jennifer Peres Consult Reason/Comments: post op medical management Do you want consulting provider notified?: Yes Primary care physician: Stated None - Discharge Diagnosis(es) (1) Status post total left knee replacement Patient was admitted to the OR on 09/18/2018 to undergo a left total knee arthroplasty. She had failed conservative measures an outpatient and desired to proceed with elective surgery after given informed consent. She underwent the above procedure which she tolerated well without complication. Postoperative hospital course has remained without complication. On day of discharge she is afebrile, vital signs stable, labs within acceptable ranges, tolerating by mouth meds and diet, voiding without difficulty, positive flatus, denies abdominal pain or calf pain, pain is controlled on oral pain medication and has no new complaints. Wound is benign, neurovascular status is intact, calf is soft and nontender, abdomen soft and nontender. Review of systems is negative for numbness, tingling, fever, chills, chest pain, shortness breath, nausea, vomiting, dizziness, headaches, slurred speech or other. Current Visit: Yes Status: Acute Priority: Medium Procedures: Left TKA Patient Condition at Discharge: Good Plan - Discharge Summary Discharge Rx Participant: Yes New Discharge Prescriptions: New Aspirin 325 mg PO BID #60 tab Sulfamethox-Tmp 800-160Mg [Bactrim DS 800-160 mg] 1 tab PO Q12HR #14 tab Docusate [Colace] 100 mg PO BID #60 capsule HYDROcodone/APAP 7.5-325MG [[place] 7.5-325] 1 - 2 each PO Q6HR PRN #56 tab PRN Reason: Pain No Action Omeprazole [PriLOSEC] 40 mg PO QAM Lisinopril [Zestril] 10 mg PO QAM Hydrochlorothiazide [Hydrodiuril] 25 mg PO QAM Aspirin 81 mg PO DAILY Methocarbamol [Robaxin] 500 mg PO HS PRN PRN Reason: Pain Loratadine [Claritin] 10 mg PO DAILY Potassium 99 mg PO DAILY Multivit with Calcium,Iron,Min [Women's Multivitamin] 2 tab PO DAILY Metoprolol Succinate [Toprol Xl] 100 mg PO QAM Krill/Om-3/Dha/Epa/Phospho/Ast [[place]-3 Krill Oil 300 mg Sfgl] 1 cap PO DAILY Calcium Carbonate [Calcium] 1,200 mg PO DAILY Meloxicam [Mobic] 15 mg PO DAILY Nystatin/Triamcin Cream [Mycolog 100,000-0.1 Unit/gm-% Cream] 1 applic TOPICAL DAILY PRN PRN Reason: Skin Irritation Unforgetable Memory Supplement 1 tab PO DAILY Acetaminophen [Tylenol Arthritis] 1,300 mg PO HS PRN PRN Reason: Pain Alendronate Sodium [Fosamax] 35 mg PO TU Ezetimibe [Zetia] 10 mg PO DAILY Discharge Medication List Aspirin 81 mg PO DAILY 12/26/17 [History] Calcium Carbonate [Calcium] 1,200 mg PO DAILY 12/26/17 [History] Hydrochlorothiazide [Hydrodiuril] 25 mg PO QAM 12/26/17 [History] Krill/Om-3/Dha/Epa/Phospho/Ast [[place]-3 Krill Oil 300 mg Sfgl] 1 cap PO DAILY 12/26/17 [History] Lisinopril [Zestril] 10 mg PO QAM 12/26/17 [History] Loratadine [Claritin] 10 mg PO DAILY 12/26/17 [History] Methocarbamol [Robaxin] 500 mg PO HS PRN 12/26/17 [History] Metoprolol Succinate [Toprol Xl] 100 mg PO QAM 12/26/17 [History] Multivit with Calcium,Iron,Min [Women's Multivitamin] 2 tab PO DAILY 12/26/17 [History] Omeprazole [PriLOSEC] 40 mg PO QAM 12/26/17 [History] Potassium 99 mg PO DAILY 12/26/17 [History] Meloxicam [Mobic] 15 mg PO DAILY 06/21/18 [History] Nystatin/Triamcin Cream [Mycolog 100,000-0.1 Unit/gm-% Cream] 1 applic TOPICAL DAILY PRN 06/21/18 [History] Acetaminophen [Tylenol Arthritis] 1,300 mg PO HS PRN 07/15/18 [History] Unforgetable Memory Supplement 1 tab PO DAILY 07/15/18 [History] Alendronate Sodium [Fosamax] 35 mg PO TU 09/11/18 [History] Ezetimibe [Zetia] 10 mg PO DAILY 09/11/18 [History] Aspirin 325 mg PO BID #60 tab 09/19/18 [Rx] Docusate [Colace] 100 mg PO BID #60 capsule 09/19/18 [Rx] HYDROcodone/APAP 7.5-325MG [[place] 7.5-325] 1 - 2 each PO Q6HR PRN #56 tab 09/19/18 [Rx] Sulfamethox-Tmp 800-160Mg [Bactrim DS 800-160 mg] 1 tab PO Q12HR #14 tab 09/19/18 [Rx] Follow up Appointment(s)/Referral(s): [facility], [NON-STAFF] - Woody Jasmine MD [STAFF PHYSICIAN] - 10 Days Activity/Diet/Wound Care/Special Instructions: Keep wound clean and dry Take meds as directed Follow-up with Dr. Jasmine in office Weight bear as tolerated May shower in 3 days if no bleeding Discharge Disposition: HOME WITH HOME HEALTH SERVICES
[2018-09-19] MEDS ORDERED: MULTIVITAMINS, THERA 1 EACH TAB PO SCH (12:00)
--- NOTE | 2018-09-19 13:44 | P.PN ---
Progress Note - Text Anesthesia POD 1. Patient is status post left TKR under spinal anesthesia with intra-thecal preservative free morphine 300 g. Minimal pruritus, excellent post-op analgesia, and no headache or other complications.
--- NOTE | 2018-09-19 23:37 | P.CONS ---
History of Present Illness - History of Present Illness This is a pleasant 73 years old female with past medical history of GERD, hyp erlipidemia, hypertension, osteoarthritis, psoriasis, varicose veins. Presents for elective left total knee arthroplasty done on 09/18/2018 for her history of degenerative joint disease that failed outpatient therapy. Today is postoperative day #1. Patient is doing well. Her pain is controlled. She denies chest pain or dyspnea. No abdominal pain. No nausea vomiting. She is tolerating diet well. No change in urine or bowel habits. No fever. Vitas looks stable. Labs reviewed showing unremarkable CBC as well as BMP and liver enzymes done last July. Patient is planned for discharge today by the primary surgical team. Review of Systems CONSTITUTIONAL: No fever, no malaise, no fatigue. HEENT: No recent visual problems or hearing problems. Denied any sore throat. CARDIOVASCULAR: No orthopnea, PND, no palpitations, no syncope. PULMONARY: No shortness of breath, no cough, no hemoptysis. GASTROINTESTINAL: No diarrhea, no nausea, no vomiting, no abdominal pain. Normoactive bowel sounds. NEUROLOGICAL: No headaches, no weakness, no numbness. HEMATOLOGICAL: Denies any bleeding or petechiae. GENITOURINARY: Denies any burning micturition, frequency, or urgency. ENDOCRINE: Denies any polyuria or polydipsia. Past Medical History Past Medical History: GERD/Reflux, Hyperlipidemia, Hypertension, Osteoarthritis (OA), Skin Disorder Additional Past Medical History / Comment(s): varicose veins, osteoporosis, psoriasis, limited ROM of left shoulder-"bone on bone", History of Any Multi-Drug Resistant Organisms: None Reported Past Surgical History: Appendectomy, Back Surgery, Breast Surgery, Cholecystectomy, Hysterectomy, Joint Replacement Additional Past Surgical History / Comment(s): breast biopsies, colonoscopy, rt knee replacement, nilson cataracts Past Anesthesia/Blood Transfusion Reactions: Previous Problems w/ Anesthesia, Postoperative Nausea & Vomiting (PONV) Additional Past Anesthesia/Blood Transfusion Reaction / Comm: states BP dropped with last knee replacement surgery 12/2017-record on chart Past Psychological History: No Psychological Hx Reported Smoking Status: Never smoker Past Alcohol Use History: Occasional Past Drug Use History: None Reported - Past Family History Sister(s) Family Medical History: Cancer Additional Family Medical History / Comment(s): breast Medications and Allergies Home Medications Medication Instructions Recorded Confirmed Type Aspirin 81 mg PO DAILY 12/26/17 09/11/18 History Calcium Carbonate [Calcium] 1,200 mg PO DAILY 12/26/17 09/11/18 History Hydrochlorothiazide [Hydrodiuril] 25 mg PO QAM 12/26/17 09/11/18 History Krill/Om-3/Dha/Epa/Phospho/Ast 1 cap PO DAILY 12/26/17 09/11/18 History [[place]-3 Krill Oil 300 mg Sfgl] Lisinopril [Zestril] 10 mg PO QAM 12/26/17 09/11/18 History Loratadine [Claritin] 10 mg PO DAILY 12/26/17 09/11/18 History Methocarbamol [Robaxin] 500 mg PO HS PRN 12/26/17 09/11/18 History Metoprolol Succinate [Toprol Xl] 100 mg PO QAM 12/26/17 09/11/18 History Multivit with Calcium,Iron,Min 2 tab PO DAILY 12/26/17 09/11/18 History [Women's Multivitamin] Omeprazole [PriLOSEC] 40 mg PO QAM 12/26/17 09/11/18 History Potassium 99 mg PO DAILY 12/26/17 09/11/18 History Meloxicam [Mobic] 15 mg PO DAILY 06/21/18 09/11/18 History Nystatin/Triamcin Cream [Mycolog 1 applic TOPICAL DAILY PRN 06/21/18 09/11/18 History 100,000-0.1 Unit/gm-% Cream] Acetaminophen [Tylenol Arthritis] 1,300 mg PO HS PRN 07/15/18 09/11/18 History Unforgetable Memory Supplement 1 tab PO DAILY 07/15/18 09/11/18 History Alendronate Sodium [Fosamax] 35 mg PO TU 09/11/18 09/11/18 History Ezetimibe [Zetia] 10 mg PO DAILY 09/11/18 09/11/18 History Aspirin 325 mg PO BID #60 tab 09/19/18 Rx Docusate [Colace] 100 mg PO BID #60 capsule 09/19/18 Rx HYDROcodone/APAP 7.5-325MG [[place] 1 - 2 each PO Q6HR PRN #56 tab 09/19/18 Rx 7.5-325] Sulfamethox-Tmp 800-160Mg [Bactrim 1 tab PO Q12HR #14 tab 09/19/18 Rx DS 800-160 mg] Allergies Allergy/AdvReac Type Severity Reaction Status Date / Time meperidine [From Demerol] Allergy "shaking" Verified 09/18/18 13:07 moxifloxacin [From Avelox] Allergy Rash/Hives Verified 09/18/18 13:07 oxycodone [From Percocet] Allergy Unknown Verified 09/18/18 13:07 Penicillins Allergy Itching Verified 09/18/18 13:07 Physical Exam Vitals: Vital Signs Temp Pulse Pulse Resp BP Pulse Ox 09/19/18 07:00 97.9 F 78 16 112/74 94 L 09/19/18 00:59 97.6 F 63 17 99/67 93 L 09/18/18 21:25 67 119/58 09/18/18 21:10 75 135/65 09/18/18 20:55 70 104/57 09/18/18 20:40 70 107/56 09/18/18 20:25 71 119/63 09/18/18 20:13 96 09/18/18 20:10 70 117/71 09/18/18 19:55 68 131/73 09/18/18 19:40 70 120/69 09/18/18 19:25 97.7 F 77 122/73 09/18/18 18:30 70 18 100/59 95 09/18/18 18:16 68 18 98/55 95 09/18/18 18:01 68 18 111/56 95 09/18/18 17:45 129 H 16 168/107 98 09/18/18 17:38 98 F 16 112/63 98 09/18/18 13:20 98.9 F 99 17 135/97 98 Intake and Output 09/18/18 09/19/18 09/19/18 22:59 06:59 14:59 Intake Total 1578 540 Output Total 100 Balance 1478 540 Intake: IV 801 Oral 777 540 Output: Estimated Blood Loss 100 Other: # Voids 1 GENERAL: The patient is alert and oriented x3, not in any acute distress. Well developed, well nourished. HEENT: Pupils are round and equally reacting to light. EOMI. No scleral icterus. No conjunctival pallor. Normocephalic, atraumatic. No pharyngeal erythema. No thyromegaly. CARDIOVASCULAR: S1 and S2 present. No murmurs, rubs, or gallops. PULMONARY: Chest is clear to auscultation, no wheezing or crackles. ABDOMEN: Soft, nontender, nondistended, normoactive bowel sounds. No palpable organomegaly. MUSCULOSKELETAL: No joint swelling or deformity. EXTREMITIES: No cyanosis, clubbing, or pedal edema. Left knee wound is clean with no surrounding cellulitis and dressing is in place. Further examination is deferred to the surgical primary team NEUROLOGICAL: Gross neurological examination did not reveal any focal deficits. SKIN: No rashes. Results CBC & Chem 7: 09/19/18 07:05 Assessment and Plan Assessment: Status post left total knee arthroplasty History of degenerative joint disease and osteoarthritis Hyperlipidemia Hypertension History of GERD History of psoriasis History of prior correspondence Plan: This is a pleasant 73 years old female who presents for elective total knee arthroplasty. She is doing well postoperatively. Pain management and DVT prophylaxis as per the primary surgical team. Resume home medication. Keep monitoring. Patient is planned to be discharged today by the surgical team. Patient looks medically stable area Patient was instructed to follow up with her primary care doctor within 1 week and she verbalized understanding and acceptance Thank you for consulting us.
== END 2018-09-19 13:05 | disposition home health service (06) ==
LOC: OR 12:52 → 4SSUR 17:08 → OR 09-19 13:05
PROVIDERS: ATTEND Orthopaedic Surgery Sports Medicine
DX: M17.12 Unilateral primary osteoarthritis, left knee (principal); M21.062 Valgus deformity, not elsewhere classified, left knee; S80.212A Abrasion, left knee, initial encounter; X58.XXXA Exposure to other specified factors, initial encounter; I10 Essential (primary) hypertension; E78.5 Hyperlipidemia, unspecified; K21.9 Gastro-esophageal reflux disease without esophagitis; K52.9 Noninfective gastroenteritis and colitis, unspecified; M81.0 Age-related osteoporosis without current pathological fracture; J30.2 Other seasonal allergic rhinitis; R26.81 Unsteadiness on feet; L40.9 Psoriasis, unspecified; I83.90 Asymptomatic varicose veins of unspecified lower extremity; Z79.82 Long term (current) use of aspirin; Z96.651 Presence of right artificial knee joint; Z79.891 Long term (current) use of opiate analgesic; Z79.899 Other long term (current) drug therapy; Z79.1 Long term (current) use of non-steroidal anti-inflammatories (NSAID); Z88.1 Allergy status to other antibiotic agents; Z88.5 Allergy status to narcotic agent; Z88.0 Allergy status to penicillin; Z90.49 Acquired absence of other specified parts of digestive tract; Z90.710 Acquired absence of both cervix and uterus
CPT/HCPCS: 27447; 88300; 73560; 97161; 85025; C1776; C1713; J2250; J0171; J2300 ×2; J2405 ×2; J0690 ×3; J2001; J2274; J3010; J1885; J2795; J2704; J0735

== ENCOUNTER → 2019-12-31 | Outpatient (CLI) | payer MEDICARE ==
--- NOTE | 2019-12-31 13:53 | CT ---
EXAMINATION TYPE: CT shoulder RT wo con DATE OF EXAM: 12/31/2019 COMPARISON: None. HISTORY: right shoulder pain, primary osteoarthritis, advanced rotator cuff arthropathy. CT DLP: 638 mGycm Automated exposure control for dose reduction was used. FINDINGS: There is high riding humeral head with loss of normal spherical shape, there is extensive sclerosis a nd subchondral cystic change in the superior aspect. There is also sclerosis and subchondral cystic c hange in the acromion which is thinned anteriorly. Acromioclavicular joint shows severe narrowing with subchondral cystic change. There is prominent spu r from the inferior distal clavicle coronal image 34 abutting superior medial aspect of the humeral h ead. Glenohumeral joint shows severe narrowing with subchondral cystic change. There is large spur from th e inferior medial aspect of the humeral head. There is moderate subdeltoid/subacromial fluid collection. There is severe supraspinatus muscular atrophy and suspected long-standing chronic full-thickness ret racted tear. Similar severe infraspinatus muscle or atrophy and suspected chronic full-thickness retr acted tear is present. Visualized ribs are intact. Visualized right lung is clear. IMPRESSION: As above.
== END | disposition home or self-care (01) ==
LOC: RADCTMAIN 13:24
PROVIDERS: ATTEND Orthopaedic Surgery Sports Medicine
DX: M25.511 Pain in right shoulder (principal); M19.011 Primary osteoarthritis, right shoulder; Z47.89 Encounter for other orthopedic aftercare; M25.562 Pain in left knee; M17.12 Unilateral primary osteoarthritis, left knee; M21.062 Valgus deformity, not elsewhere classified, left knee; I10 Essential (primary) hypertension; S80.212D Abrasion, left knee, subsequent encounter; Z96.652 Presence of left artificial knee joint

== ENCOUNTER → 2019-12-31 | Outpatient (CLI) | payer MEDICARE ==
[2019-12-31 15:36] LABS: HCT 43.9 % (34.0-46.0); HGB 14.3 gm/dL (11.4-16.0); MCH 28.9 pg (25.0-35.0); MCHC 32.6 g/dL (31.0-37.0); MCV 88.5 fL (80.0-100.0); Mean Platelet Volume 8.2; Platelet Count 213 k/uL (150-450); RBC 4.96 m/uL (3.80-5.40); RDW 13.9 % (11.5-15.5); WBC 7.2 k/uL (3.8-10.6)
[2019-12-31 15:40] LABS: Calcium 9.3 mg/dL (8.4-10.2); Potassium 4.1 mmol/L (3.5-5.1); Total Bilirubin 0.4 mg/dL (0.2-1.3); Total Protein 6.8 g/dL (6.3-8.2)
[2019-12-31 15:42] LABS: Partial Thromboplastin Time 22.2 sec (22.0-30.0); Prothrombin Time 10.1 sec (9.0-12.0)
[2019-12-31 15:48] LABS: Appearance,Urine Clear (Clear); Bilirubin,Urine Negative (Negative); Blood,Urine Negative (Negative); Color,Urine Light Yellow; Glucose,Urine (UA) Negative (Negative); Ketones,Urine Negative (Negative); Leukocyte Esterase,Urine Negative (Negative); Nitrite,Urine Negative (Negative); PH, Urine 6.5 (5.0-8.0); Protein,Urine Negative (Negative); Specific Gravity,Urine 1.012 (1.001-1.035); Urobilinogen,Urine <2.0 mg/dL (<2.0)
== END | disposition home or self-care (01) ==
LOC: LABPAT 14:08
PROVIDERS: ATTEND Orthopaedic Surgery Sports Medicine
DX: Z01.818 Encounter for other preprocedural examination (principal); Z79.01 Long term (current) use of anticoagulants
CPT/HCPCS: 36415; 80053; 81003; 85027; 85610; 85730; 93005

== ENCOUNTER → 2020-01-16 | Outpatient (CLI) | payer MEDICARE | END | disposition home or self-care (01) | LOC: LABPAT 14:27 | PROVIDERS: ATTEND Orthopaedic Surgery Sports Medicine | DX: Z01.812 Encounter for preprocedural laboratory examination (principal) | CPT/HCPCS: 87070 ==

== ENCOUNTER 2020-01-29 09:50 | Inpatient (IN) | payer MEDICARE ==
[2020-01-07 13:31] VITALS: BMI 32.3
[~2020-01-29 09:50] MED LIST changes: -BISACODYL 10 MG SUPP RECTAL PRN; -DIAZEPAM 5 MG TAB PO PRN; +GABAPENTIN 300 MG CAP PO ONE; -HYDROcodone/APAP 10-325MG 1 EACH TAB PO PRN; -HYDROcodone/APAP 5-325MG 1 EACH TAB PO PRN; -HYDROmorphone 0.5 MG/0.5 ML SYRINGE IVP PRN; -LIDOCAINE 1% 20 ML VIAL (10MG/ML) FOR IV START INTRADERMA PRN; -MAGNESIUM HYDROXIDE 2,400 MG/10 ML CUP PO PRN; -NA PHOS,M-B/NA PHOS,DI-BA 133 ML ENEMA RECTAL PRN; -NALOXONE 0.4 MG/ML 1 ML VIAL IV PRN; -ROPIVACAINE 246.25 MG, EPINEPHrine 0.5 MG, KETOROLAC 30 MG, cloNIDine HCL/PF 80 MCG, WA... MISCELLANE ONE; -TEMAZEPAM 15 MG CAP PO PRN; -ceFAZolin IN SWFI 2 GM/20 ML SYRINGE IVP ONE; -traMADol 50 MG TAB PO PRN
[2020-01-29] MEDS ORDERED: DEXAMETHASONE SOD PHOSPHATE 10 MG/ML 1 ML VIAL IV ONE (10:53)
[2020-01-29] MEDS ORDERED: HYDROmorphone 0.5 MG/0.5 ML SYRINGE IVP PRN ×4 (10:53→12:42)
[2020-01-29] MEDS ORDERED: MIDAZOLAM 2 MG/2 ML VIAL IV PRN (10:53)
[2020-01-29] MEDS ORDERED: LACTATED RINGERS 1,000 ML IV SCH (10:53)
[2020-01-29] MEDS ORDERED: MIDAZOLAM 2 MG/2 ML VIAL IV ONE (11:41)
--- NOTE | 2020-01-29 12:20 | P.ANPRN ---
Procedure Note - Anesthesia - Nerve Block Performed Right Interscalene Single Time Out Performed: Yes (1140) Date of Procedure: 01/29/20 Procedure Start Time: 11:41 Procedure Stop Time: 11:47 Location of Patient: PreOp Indication: Acute Post-Operative Pain, Requested by Surgeon Specifically requested for management of pain by DrNoel: Woody Jasmine Sedation Type: Sedate with meaningful contact maintained Preparation: Sterile Prep Position: Supine Catheter: None Needle Types: Pajunk Needle Gauge: 21 Ultrasound used to visualize needle placement: Yes Ultrasound used to observe medication spread: Yes Injectate: 0.5% Ropivacaine (see comment for volume) (30cc) Blood Aspirated: No Pain Paresthesia on Injection Noted: No Resistance on Injection: Normal Image Stored and Saved: Yes Events: Uneventful and Well Tolerated
[2020-01-29] MEDS ORDERED: TEMAZEPAM 15 MG CAP PO PRN (12:42)
[2020-01-29] MEDS ORDERED: SENNOSIDES-DOCUSATE SODIUM 1 EACH TAB PO PRN (12:42)
[2020-01-29] MEDS ORDERED: ONDANSETRON 4 MG/2 ML VIAL IVP PRN (12:42)
[2020-01-29] MEDS ORDERED: diphenhydrAMINE 25 MG CAP PO PRN (12:42)
[2020-01-29] MEDS ORDERED: METOCLOPRAMIDE 5 MG/ML 2 ML VIAL IVP PRN (12:42)
[2020-01-29] MEDS ORDERED: HYDROcodone/APAP 7.5-325MG 1 EACH TAB PO PRN ×2 (12:47)
[2020-01-29] MEDS ORDERED: MIDAZOLAM 2 MG/2 ML VIAL ONE (12:54)
[2020-01-29] MEDS ORDERED: ePHEDrine SULFATE/0.9% NACL/PF 50 MG/5 ML SYRINGE IV ONE (12:54)
[2020-01-29] MEDS ORDERED: SUCCINYLCHOLINE CHLORIDE VIAL 200 MG/10 ML VIAL IV ONE (12:54)
[2020-01-29] MEDS ORDERED: PROPOFOL 10 MG/ML 20 ML VIAL IV ONE (12:54)
[2020-01-29] MEDS ORDERED: TRANEXAMIC ACID 1,000 MG/10 ML VIAL ONE (12:54)
[2020-01-29] MEDS ORDERED: PHENYLEPHRINE-0.9% NACL SYG 1 MG/10 ML SYRINGE ONE (12:54)
[2020-01-29] MEDS ORDERED: SODIUM CHLORIDE 0.9% 100 ML BAG ONE (12:54)
[2020-01-29] MEDS ORDERED: LIDOCAINE 1% INJ 10MG/ML (20 ML MDV) ONE (12:54)
[2020-01-29] MEDS ORDERED: fentaNYL (PF) 50 MCG/ML 2 ML AMP ONE (12:54)
[2020-01-29] MEDS ORDERED: ceFAZolin 3,000 MG in SODIUM CHLORIDE 0.9% IRRIGATIO 3,000 ML IRRIGATION ONE (13:36)
[2020-01-29] MEDS ORDERED: VANCOMYCIN 1,000 MG VIAL MISCELLANE ONE (13:36)
[2020-01-29] MEDS: ONDANSETRON 4 MG/2 ML VIAL IVP ONE ×2 (15:48→16:41)
--- NOTE | 2020-01-29 16:19 | XR ---
EXAMINATION TYPE: XR shoulder limited RT DATE OF EXAM: 01/29/2020 COMPARISON: NONE HISTORY: 74-year-old female postoperative exam, assess hardware alignment TECHNIQUE: AP portable view FINDINGS: Single view demonstrates placement of reverse right total shoulder arthroplasty. Alignment appears ap propriate. No periprosthetic fracture is seen. Soft tissue air related to recent operation. A surgica l drain is in place. Low lung volumes within the visualized right hemithorax. IMPRESSION: Uncomplicated postoperative appearance reversed right TSA.
[2020-01-29] MEDS: LACTATED RINGERS 1,000 ML IV SCH ×2 (16:41→22:12)
--- NOTE | 2020-01-29 17:11 | OP ---
OPERATIVE REPORT DATE OF PROCEDURE: 01/29/2020 SURGEON: Woody Jasmine MD ETIOLOGY TEACHER: Abraham JOHNSON. PREOPERATIVE DIAGNOSIS: Right shoulder advanced rotator cuff arthropathy. POSTOPERATIVE DIAGNOSIS: Right shoulder advanced rotator cuff arthropathy. OPERATION: Right reverse total shoulder arthroplasty. ANESTHESIA: General endotracheal. ESTIMATED BLOOD LOSS: 150 mL. DRAINS: None. COMPLICATIONS: None apparent. DISPOSITION: Postanesthesia care unit. INDICATIONS: Camelia is a very pleasant 74-year-old female with longstanding right shoulder pain. Workup including x-rays and CT scan revealed advanced rotator cuff osteoarthrosis of the right shoulder. At this point, it is felt that she has failed conservative management and she would like to proceed with operative intervention. Risks of procedure were discussed with her in detail. These risks include, but are not limited to risk of infection, nerve damage, bleeding, pain, instability in the shoulder, loosening of the implants and deep infection. There is also risk of deep vein thrombosis which could lead to fatal pulmonary embolism. The patient understood the risks. All of her questions were answered to her satisfaction. Appropriate informed consent was obtained. DESCRIPTION OF PROCEDURE: Patient identified in preop holding area. Surgical site was marked by both the patient and myself. She was given 2 g of Ancef IV for prophylactic purposes. She was then transferred to the operative suite. She was placed supine on the operative table. A general anesthetic was then administered and dosed per the Anesthesia Department without apparent complication. Examination under anesthesia was performed of the right shoulder. She had passive elevation 150 degrees external rotation at the side was 50 degrees. Patient was then placed into the beach chair position, well-padded in preparation for surgery. Great care was taken to ensure that his her neck was in neutral alignment, well-padded and maintained that way throughout the operative procedure. Great care was also taken to ensure the legs were appropriately padded as well. Patient's right upper extremity is then prepped draped in usual sterile fashion. Standard surgical pause undertaken to ensure that we were operating the correct site and that appropriate preoperative antibiotics were given. All staff were in agreement, we proceeded. The acromion AC joint, clavicle, and coracoid were marked surgical pen. A planned incision starting at the level of the clavicle extending distally over the deltopectoral interval approximately 1 cm lateral to the coracoid was marked with surgical pen. The incision was then made with a 10 blade scalpel. Dissection carried down sharply to the deltoid fascia. The deltopectoral interval was identified at the level of the clavicle. A small band retractor was then placed onto the proximal deltoid. I then released the deltoid fascia on the lateral aspect of the cephalic vein. The vein was then left in its bed medially. The cephalic vein was protected throughout the entire case. I then identified the clavipectoral fascia. It was incised proximally to the level of the coracoacromial ligament. The coracoacromial ligament was then left intact. There was thickened capsule, but no attachment to the subscapularis, supraspinatus, or infraspinatus. The humeral head was completely devoid of rotator cuff attachment. I then felt for the axillary nerve which was readily palpable. I then cleared the subacromial subdeltoid spaces of bursal and scar tissue. I then utilized a Brown retractor to hold the deltoid and expose the humeral head. I then proceeded to release the inferior shoulder capsule. The capsule was released along the inferior neck in a vertical fashion to approximately the 6 o'clock position. Great care was taken to ensure that the capsule was always visualized as it was released to avoid injuring the axillary nerve. I then brought the Singh mainframe developer with the arm externally rotated and abducted. I continued to release the capsule inferomedially to the 4 o'clock position. The inferior osteophytes were now removed as well. This is done with a rongeur. I then proceeded with preparation of the humerus. I removed all the goat's mae osteophytes. I then removed the subchondral plate from the superior aspect of the humeral head utilizing a large rongeur. I then used a starter reamer to gain access to the humeral canal. This was approximately 1 cm medial to the rotator cuff insertion and 1 cm posterior to the bicipital groove. I then prepared the humeral canal with hand reaming. I started with a 6 mm reamer and progressed in 1 mm increments up until firm resistance was encountered at 10 mm. The reamer handle was then left in place. I then utilized a humeral resection guide set at 30 degrees of retrotorsion. The cutting block was then set at the previous insertion of the rotator cuff. I then proceed osteotomized the head with an oscillating saw. I then removed the resection guide and then completed the osteotomy. I then proceeded with trial stem placement. I then broached the canal starting with a 6 mm broach up to a 10 mm broach. The 10 mm broach was then left in place. The biceps was then tenotomized at the level of superior labrum. A bone hook was then utilized to pull the humerus out laterally. I then inspected the joint for any loose bodies. A Battman retractor was then placed on the posterior glenoid rim. The arm was placed in approximately 80 degrees of abduction and in slight flexion on the Singh stand. I then proceeded to remove the hypertrophic labrum to definitively identify the actual glenoid. I then utilized the mini base plate starting drill guide. This was the pin was placed as inferiorly as possible in the center of the glenoid. It was placed. It was then incised and it was then inserted in approximately 10 degrees of inferior tilt. I then utilized the mini base plate reamer. This was then taken down and to the point as minimal reaming was done as possible to cover as much but preserve as much subchondral bone as possible. I then proceeded to place a central screw. A 25 mm central screw was then placed. I had excellent purchase in the bone. I was able to rotate the scapula through the screwdriver after the screw was fully seated. I then placed a peripheral locking screws. Three, the superior, inferior, and posterior peripheral locking screws were placed. The superior and inferior screws were 25 mm x 5 mm screws. The posterior locking screw was a 15 mm x 5 mm screw. I did not place the anterior screw. I then had the regional sales representative open a 36 mm glenoid sphere. It was then adjusted so that it could be offset as inferiorly as possible. The Low tapers were dried and the real glenoid sphere was then impacted into the base plate. I then proceeded with trialing. I placed a standard tray and a standard base plate. The shoulder was then reduced. It was slightly loose. I then trialed with a +3 poly and standard tray. This was then taken through full range of motion, it was very stable. There was very minimal shuck. The conjoined tendon was of appropriate tension. The shoulder was then redislocated. The I had the regional sales representative open a Biomet size 10 mini stem, a standard base plate and a +3. The wound was then thoroughly irrigated with sterile saline solution with antibiotic added. The real stem was then impacted into the canal and approximately 30 degrees of retrotorsion. The +3 poly was locked onto the standard base plate on the back table. The Low tapers were then dried and then the base plate and poly were impacted into a dried Low taper of the stem. The shoulder was again reduced. It was relatively difficult reduction. The shoulder was stable throughout a full range of motion. It was. She had full internal rotation without impingement. The conjoined tendon was of appropriate tension. At this point time, we proceeded with closure. I felt for the axillary nerve which was readily palpable. The again the wound was thoroughly irrigated with sterile saline. Antibiotic added. Approximately 500 mg of vancomycin powder was placed deep. A deep drain was also placed and brought out superiorly away from the incision. The deltopectoral interval was then reapproximated with 0 Vicryl interrupted suture. Again the wound was thoroughly irrigated with sterile saline solution with antibiotic added. The remaining 500 mg of vancomycin powder was then placed subcutaneously. The subcutaneous tissue was then closed with 2-0 Vicryl interrupted suture and the skin was closed with a running 3-0 Quill suture. Dermabond was applied to the incision. A sterile dressing was then applied. The right upper extremity was placed into a standard sling. All sponge and needle counts were deemed correct prior to closure. The patient tolerated procedure without apparent complication. She was transferred recovery room in stable condition. MMODL / IJN: [id number] /
[2020-01-30 02:59] VITALS: TEMP 97.6
[2020-01-30 06:18] LABS: Basophils % (A) 0 %; Eosinophils % (A) 0 %; HCT 38.8 % (34.0-46.0); HGB 12.7 gm/dL (11.4-16.0); Lymphocytes % (A) 21 %; MCH 30.2 pg (25.0-35.0); MCHC 32.7 g/dL (31.0-37.0); MCV 92.3 fL (80.0-100.0); Mean Platelet Volume 8.2; Monocytes # (A) 0.5 k/uL (0-1.0); Monocytes % (A) 6 %; Neutrophils # (A) 6.7 k/uL (1.3-7.7); Neutrophils % (A) 72 %; Platelet Count 172 k/uL (150-450); RDW 13.6 % (11.5-15.5); WBC 9.3 k/uL (3.8-10.6)
[2020-01-30] MEDS ORDERED: hydroCHLOROthiazide 25 MG TAB PO SCH (09:00)
[2020-01-30] MEDS ORDERED: LORATADINE 10 MG TAB PO SCH (09:00)
[2020-01-30] MEDS ORDERED: CALCIUM CARBONATE 500 MG CHEWABLE PO SCH (09:00)
[2020-01-30] MEDS ORDERED: MELOXICAM 7.5 MG TAB PO SCH (09:00)
[2020-01-30] MEDS ORDERED: METOPROLOL SUCCINATE (ER) 100 MG TAB.ER.24H PO SCH (09:00)
[2020-01-30] MEDS ORDERED: EZETIMIBE 10 MG TAB PO SCH (09:00)
[2020-01-30] MEDS ORDERED: lisinopriL 10 MG TAB PO SCH (09:00)
[2020-01-30] MEDS ORDERED: oxyCODONE-APAP 5-325MG 1 EACH TAB PO PRN ×2 (10:04)
--- NOTE | 2020-01-30 10:09 | P.DS ---
Providers Date of admission: 01/29/20 10:40 Expected date of discharge: 01/30/20 Attending physician: Woody Jasmine Consults: 01/29/20 12:42 Consult Physician Routine Consulting Provider: Jennifer Peres Consult Reason/Comments: post op medical management Do you want consulting provider notified?: Yes Primary care physician: Physician Nonstaff - Discharge Diagnosis(es) (1) Status post total replacement of right shoulder Patient was admitted to the OR on 01/29/2020 to undergo a right total shoulder arthroplasty. She had failed conservative measures as an outpatient and desired to proceed with elective surgery after given informed consent. She underwent the above procedure which she tolerated well without complication. Postoperative hospital course has remained without complication. On day of discharge she is afebrile, vital signs stable, labs within acceptable ranges, tolerating by mouth meds and diet, voiding without difficulty, positive flatus, denies abdominal pain or calf pain, pain is controlled on oral pain medication and has no new complaints. Wound is benign, neurovascular status is intact, calf is soft and nontender, abdomen soft and nontender. Review of systems is negative for numbness, tingling, fever, chills, chest pain, shortness of breath, nausea, vomiting, dizziness, headaches, slurred speech or other. Current Visit: Yes Status: Acute Priority: Medium Procedures: Right Total shoulder arthroplasty Patient Condition at Discharge: Good Plan - Discharge Summary Discharge Rx Participant: Yes New Discharge Prescriptions: New oxyCODONE HCL/ACETAMINOPHEN [Percocet 5-325 mg] 1 tab PO Q4HR PRN #42 tab PRN Reason: Pain Doxycycline Hyclate 100 mg PO BID #10 tab No Action lisinopriL [Zestril] 10 mg PO QAM methocarbamoL [Robaxin] 500 mg PO DAILY PRN PRN Reason: Pain Loratadine [Claritin] 10 mg PO DAILY Multivit with Calcium,Iron,Min [Women's Multivitamin] 2 tab PO DAILY Metoprolol Succinate [Toprol Xl] 100 mg PO QAM Krill/Om-3/Dha/Epa/Phospho/Ast [Canadian-3 Krill Oil 300 mg Sfgl] 2 cap PO DAILY Calcium Carbonate [Calcium] 1,200 mg PO DAILY Meloxicam [Mobic] 15 mg PO DAILY Ezetimibe [Zetia] 10 mg PO DAILY traMADol HCL [Ultram] 50 mg PO DAILY PRN PRN Reason: Pain Acetaminophen/Diphenhydramine [Tylenol PM 500-25mg] 1 tab PO HS PRN PRN Reason: Insomnia Acetaminophen Tab [Tylenol] 650 mg PO DIRECTED PRN PRN Reason: Pain Mv-Min/Vit C/Glut/Lysine/Hc124 [Airborne Tablet Chewable] 2 each PO DAILY Potassium (Unknown Dose Otc) 1 dose PO DAILY Omeprazole (Unknown Dose) 1 tab PO DAILY hydroCHLOROthiazide 25 mg PO DAILY Discharge Medication List Calcium Carbonate [Calcium] 1,200 mg PO DAILY 12/26/17 [History] Krill/Om-3/Dha/Epa/Phospho/Ast [Canadian-3 Krill Oil 300 mg Sfgl] 2 cap PO DAILY 12/26/17 [History] Loratadine [Claritin] 10 mg PO DAILY 12/26/17 [History] Metoprolol Succinate [Toprol Xl] 100 mg PO QAM 12/26/17 [History] Multivit with Calcium,Iron,Min [Women's Multivitamin] 2 tab PO DAILY 12/26/17 [History] lisinopriL [Zestril] 10 mg PO QAM 12/26/17 [History] methocarbamoL [Robaxin] 500 mg PO DAILY PRN 12/26/17 [History] Meloxicam [Mobic] 15 mg PO DAILY 06/21/18 [History] Ezetimibe [Zetia] 10 mg PO DAILY 09/11/18 [History] Acetaminophen Tab [Tylenol] 650 mg PO DIRECTED PRN 01/07/20 [History] Acetaminophen/Diphenhydramine [Tylenol PM 500-25mg] 1 tab PO HS PRN 01/07/20 [History] Mv-Min/Vit C/Glut/Lysine/Hc124 [Airborne Tablet Chewable] 2 each PO DAILY 01/07/20 [History] Omeprazole (Unknown Dose) 1 tab PO DAILY 01/07/20 [History] Potassium (Unknown Dose Otc) 1 dose PO DAILY 01/07/20 [History] traMADol HCL [Ultram] 50 mg PO DAILY PRN 01/07/20 [History] hydroCHLOROthiazide 25 mg PO DAILY 01/08/20 [History] Doxycycline Hyclate 100 mg PO BID #10 tab 01/30/20 [Rx] oxyCODONE HCL/ACETAMINOPHEN [Percocet 5-325 mg] 1 tab PO Q4HR PRN #42 tab 01/30/20 [Rx] Follow up Appointment(s)/Referral(s): [facility], [NON-STAFF] - As Needed Woody Jasmine MD [STAFF PHYSICIAN] - 02/10/20 9:05 am Activity/Diet/Wound Care/Special Instructions: Keep wound clean and dry Take meds as directed Follow-up with Dr. Jasmine in office Non weightbearing right upper extremity maintain sling May shower in 3 days if no bleeding Discharge Disposition: HOME WITH HOME HEALTH SERVICES
[2020-01-30 12:14] VITALS: BP 112/71; PULSE 76; RESP 19
== END 2020-01-30 14:51 | disposition home health service (06) | DRG 483 ==
LOC: 2ORMAIN 10:40 → EDSTATUS 12:15 → 4SSUR 15:26
PROVIDERS: ADMIT Orthopaedic Surgery Sports Medicine; ATTEND Orthopaedic Surgery Sports Medicine
PROC: 0RRJ00Z Replacement of Right Shoulder Joint with Reverse Ball and Socket Synthetic Substitute, Open Approach (ICD-10-PCS; principal; 2020-01-29 14:00)
DX: M19.011 Primary osteoarthritis, right shoulder (principal); I10 Essential (primary) hypertension; E78.5 Hyperlipidemia, unspecified; M81.0 Age-related osteoporosis without current pathological fracture; K21.9 Gastro-esophageal reflux disease without esophagitis; R91.1 Solitary pulmonary nodule; J30.2 Other seasonal allergic rhinitis; Z79.899 Other long term (current) drug therapy; Z88.5 Allergy status to narcotic agent; Z88.0 Allergy status to penicillin; Z88.8 Allergy status to other drugs, medicaments and biological substances; Z90.710 Acquired absence of both cervix and uterus; Z90.49 Acquired absence of other specified parts of digestive tract; Z87.19 Personal history of other diseases of the digestive system; Z96.653 Presence of artificial knee joint, bilateral; Z98.1 Arthrodesis status; Z82.49 Family history of ischemic heart disease and other diseases of the circulatory system; Z82.0 Family history of epilepsy and other diseases of the nervous system; Z82.3 Family history of stroke; Z80.3 Family history of malignant neoplasm of breast
CPT/HCPCS: 64415; 76942; 85025